=== PATIENT | female | born 1960 | race Caucasian/White ===

== ENCOUNTER → 2016-09-17 | Outpatient (CLI) | payer OTHER ==
[~2016-09-17] MED LIST: LEVO75TA42 PO; LORT7.5T3 PO; NAPR550 PO; ZANTTAB9 PO
[2016-09-17 09:21] LABS: HEMATOCRIT 41.1 % (35.0-46.0); MEAN CELL VOLUME 90.4 FL (80.0-100.0); MEAN CORPUSCULAR HEMOGLOBIN 30.9 PG (27.0-34.0); MEAN CORPUSCULAR HGB CONC 34.1 % (32.0-36.0); PLATELET COUNT 169 TH/MM3 (150-450); RED BLOOD COUNT 4.54 MIL/MM3 (4.00-5.30); RED CELL DISTRIBUTION WIDTH 12.9 % (11.6-17.2); REVIEW FLAG FINAL; WHITE BLOOD COUNT 4.3 TH/MM3 (4.0-11.0)
[2016-09-17 09:49] LABS: ALKALINE PHOSPHATASE 71 U/L (45-117); ALT (GPT) 30 U/L (10-53); ANION GAP 6 MEQ/L (5-15); AST (GOT) 24 U/L (15-37); BICARBONATE 30.7 MEQ/L (21.0-32.0); BLOOD UREA NITROGEN 13 MG/DL (7-18); CHLORIDE 106 MEQ/L (98-107); GLOMERULAR FILTRATION RATE 63 ML/MIN (>89); GLUCOSE,FASTING 98 MG/DL (74-99); HDL CHOLESTEROL 74.1 MG/DL (40.0-60.0); LDL CHOLESTEROL 82 MG/DL (0-99); LDL CHOLESTEROL DIRECT 95 MG/DL (0-99); SODIUM (NA) 143 MEQ/L (136-145); TOTAL BILIRUBIN ADULT 0.5 MG/DL (0.2-1.0)
== END ==
LOC: PLAB 07:22
PROVIDERS: ATTEND Family Medicine
DX: E78.4 Other hyperlipidemia (principal); E03.8 Other specified hypothyroidism
CPT/HCPCS: 80053; 80061; 83721; 84443; 85027

== ENCOUNTER → 2017-09-12 | Outpatient (CLI) | payer OTHER ==
[2017-09-12 09:20] LABS: HEMATOCRIT 39.5 % (35.0-46.0); HEMOGLOBIN 13.4 GM/DL (11.6-15.3); MEAN CELL VOLUME 92.7 FL (80.0-100.0); MEAN CORPUSCULAR HEMOGLOBIN 31.5 PG (27.0-34.0); MEAN PLATELET VOLUME 9.9 FL (7.0-11.0); PLATELET COUNT 162 TH/MM3 (150-450); RED BLOOD COUNT 4.26 MIL/MM3 (4.00-5.30); WHITE BLOOD COUNT 4.7 TH/MM3 (4.0-11.0)
[2017-09-12 10:18] LABS: AST (GOT) 21 U/L (15-37); BICARBONATE 29.5 MEQ/L (21.0-32.0); BLOOD UREA NITROGEN 14 MG/DL (7-18); CALCIUM 9.2 MG/DL (8.5-10.1); CHLORIDE 104 MEQ/L (98-107); CREATININE 0.81 MG/DL (0.50-1.00); GLOMERULAR FILTRATION RATE 73 ML/MIN (>89); GLUCOSE,FASTING 95 MG/DL (74-99); SODIUM (NA) 141 MEQ/L (136-145)
[2017-09-12 10:19] LABS: ALT (GPT) 30 U/L (10-53); CHOLESTEROL 176 MG/DL (120-200); TRIGLYCERIDES 75 MG/DL (42-150)
[2017-09-12 10:28] LABS: ALKALINE PHOSPHATASE 69 U/L (45-117); CHOLESTEROL/ HDL RATIO 2.54 RATIO; HDL CHOLESTEROL 69.1 MG/DL (40.0-60.0); LDL CHOLESTEROL 92 MG/DL (0-99); LDL CHOLESTEROL DIRECT 97 MG/DL (0-99); TOTAL BILIRUBIN ADULT 0.5 MG/DL (0.2-1.0); TOTAL PROTEIN 7.1 GM/DL (6.4-8.2)
== END ==
LOC: PLAB 06:54
PROVIDERS: ATTEND Family Medicine
DX: E03.9 Hypothyroidism, unspecified (principal); K63.5 Polyp of colon; Z79.890 Hormone replacement therapy
CPT/HCPCS: 36415; 80053; 80061; 83721; 84443; 85027